=== PATIENT | female | born 1940 | race Caucasian/White ===

== ENCOUNTER 2016-11-18 08:28 | Emergency (ER) | payer MEDICARE ==
[2016-11-18 08:35] VITALS: BP 157/97
[2016-11-18] MEDS ORDERED: Albuterol/Ipratropium NEB.SOL* Albuterol 2.5 MG/Ipratropium 0.5 MG 3 ML INH ONE (09:44)
--- NOTE | 2016-11-18 09:46 | RAD ---
INDICATION: Cough and shortness of breath. COMPARISON: Comparison is made with a prior chest x-ray study from September 26, 2011. TECHNIQUE: Dual-energy PA and lateral views of the chest were obtained. FINDINGS: The heart is within normal limits in size. Mediastinal and hilar contours appear within normal limits. The lungs are hyperinflated and clear. No pleural effusion is seen. IMPRESSION: FINDINGS CONSISTENT WITH COPD, NO EVIDENCE FOR ACUTE FINDING.
--- NOTE | 2016-11-18 10:18 | UC ---
Respiratory Complaint HPI - HPI Summary HPI Summary: YESTERDAY ONSET OF SORE THROAT, SHORTNESS OF BREATH, COUGH, BODYACHES. FEVER YESTERDAY, RESOLVED TODAY. HX OF COPD. - History of Current Complaint Chief Complaint: UCRespiratory Stated Complaint: SOB COUGH FEVER Time Seen by Provider: 11/18/16 08:43 Hx Obtained From: Patient Onset/Duration: Sudden Onset, Lasting Days, Still Present Severity Initially: Moderate Severity Currently: Mild Character: Cough: Nonproductive Aggravating Factors: Deep Breaths Alleviating Factors: Bronchodilator Associated Signs And Symptoms: Positive: Fever - RESOLVED YESTERDAY, Wheezing, URI, Nasal Congestion, Hoarseness. Negative: Dizziness, Calf Pain, Calf Swelling - Risk Factors Pulmonary Embolism Risk Factors: Negative Cardiac Risk Factors: Negative Pseudomonas Risk Factors: Negative Tuberculosis Risk Factors: Negative - Allergies/Home Medications Allergies/Adverse Reactions: Allergies Allergy/AdvReac Type Severity Reaction Status Date / Time BEES Allergy ANAPHYLACTI Uncoded 11/18/16 08:35 C PMH/Surg Hx/FS Hx/Imm Hx Previously Healthy: Yes - Surgical History Surgical History: Yes Surgery Procedure, Year, and Place[place] [address] [place] [facility] [place] - Family History Known Family History: Positive: Respiratory Disease - ASTHMA - Social History Occupation: Retired Lives: With Family Alcohol Use: Daily Alcohol Amount: 1 glass wine at night Substance Use Type: None Smoking Status (MU): Former Smoker Type: Cigarettes Review of Systems Constitutional: Fever - RESOLVED, Chills Skin: Negative Eyes: Negative ENT: Sore Throat - RESOLVED, Nasal Discharge, Sinus Congestion Respiratory: Shortness Of Breath, Cough Cardiovascular: Negative Gastrointestinal: Negative Genitourinary: Negative Motor: Negative Neurovascular: Negative Musculoskeletal: Negative Neurological: Negative Psychological: Negative All Other Systems Reviewed And Are Negative: Yes Physical Exam Triage Information Reviewed: Yes Appearance: No Pain Distress, Well-Nourished, Ill-Appearing - MILDLY Vital Signs: Initial Vital Signs Temp 98.3 F 11/18/16 08:31 Pulse 107 11/18/16 08:31 Resp 22 11/18/16 08:31 BP 157/97 11/18/16 08:31 Pulse Ox 98 11/18/16 08:31 Vital Signs Reviewed: Yes Eye Exam: Normal ENT Exam: Normal ENT: Positive: Normal ENT inspection, Hearing grossly normal, Pharynx normal, TMs normal Dental Exam: Normal Neck exam: Normal Neck: Positive: Supple, Nontender, No Lymphadenopathy Respiratory Exam: Other - COUGH Respiratory: Positive: Chest non-tender, No respiratory distress, No accessory muscle use, Wheezing, Other: - [place] Cardiovascular Exam: Normal Cardiovascular: Positive: No Murmur, Pulses Normal, Brisk Capillary Refill, Tachycardia Abdominal Exam: Normal Musculoskeletal Exam: Normal Musculoskeletal: Positive: Strength Intact, ROM Intact, No Edema Neurological Exam: Normal Psychological Exam: Normal Skin Exam: Normal UC Diagnostic Evaluation - Laboratory O2 Sat by Pulse Oximetry: 98 Respiratory Course/Dx - Differential Dx/Diagnosis Differential Diagnosis/HQI/PQRI: Asthma, Bronchitis, Sinusitis Provider Diagnoses: BRONCHITIS WITH BRONCHOSPASM; COPD Discharge - Discharge Plan Condition: Stable Disposition: HOME Prescriptions: Albuterol HFA INHALER* [Ventolin HFA Inhaler*] 1 - 2 puff INH Q6H PRN #1 mdi PRN Reason: Wheezing Azithromycin TAB* [Zithromax TAB (Z-CHESTER) 250 mg #6 tabs] 250 mg PO DAILY #6 tab Patient Education Materials: Acute Bronchitis (ED), COPD (Chronic Obstructive Pulmonary Disease) (ED), Bronchospasm (ED) Referrals: Andreea Forbes MD [Primary Care Provider] - Additional Instructions: PLEASE SEEK CARE PROMPTLY AT THE EMERGENCY DEPARTMENT IF SYMPTOMS CONTINUE, WORSEN, OR IF NEW SYMPTOMS OCCUR.
== END 2016-11-18 10:25 | disposition home or self-care (01) ==
LOC: UCEAST 08:28
DX: J20.9 Acute bronchitis, unspecified (principal); J44.0 Chronic obstructive pulmonary disease with (acute) lower respiratory infection; Z91.030 Bee allergy status; Z87.891 Personal history of nicotine dependence
CPT/HCPCS: 71020; 87502; 99212; A9270-GY; G0463

== ENCOUNTER 2018-09-15 15:11 | Emergency (ER) | payer MEDICARE ==
[2018-09-15 15:26] VITALS: BP 159/84
--- NOTE | 2018-09-15 16:13 | UC ---
Respiratory Complaint HPI - HPI Summary HPI Summary: Reports 1 wk of bronchitis and feels like coughing got better but now has wheezing. has occasional sob and has been using symbicort as rx'd. when asked if she uses albuterol she said she just started yesterday. only used once. Of note pt used to smoke for 50 yrs. - History of Current Complaint Chief Complaint: UCRespiratory Stated Complaint: BREATHING ISSUES Time Seen by Provider: 09/15/18 15:48 Hx Obtained From: Patient Pain Intensity: 0 Aggravating Factors: Nothing Alleviating Factors: Nothing - Allergies/Home Medications Allergies/Adverse Reactions: Allergies Allergy/AdvReac Type Severity Reaction Status Date / Time BEES Allergy ANAPHYLACTI Uncoded 11/18/16 08:35 C PMH/Surg Hx/FS Hx/Imm Hx Cardiovascular History: Hypertension Respiratory History: COPD, Asthma - Surgical History Surgical History: Yes Surgery Procedure, Year, and Place[place] [facility] [place] - Family History Known Family History: Positive: Respiratory Disease - ASTHMA - Social History Alcohol Use: Daily Alcohol Amount: 1 glass wine at night Substance Use Type: None Smoking Status (MU): Former Smoker Type: Cigarettes Review of Systems All Other Systems Reviewed And Are Negative: Yes Constitutional: Negative: Fever, Chills, Fatigue Respiratory: Positive: Shortness Of Breath, Cough, Other - wheezing Cardiovascular: Positive: Negative Neurological: Negative: Headache, Weakness, Other - denies dizziness Physical Exam Triage Information Reviewed: Yes Appearance: Well-Appearing Vital Signs: Initial Vital Signs Temp 98.7 F 09/15/18 15:22 Pulse 108 09/15/18 15:22 Resp 18 09/15/18 15:22 BP 159/84 09/15/18 15:22 Pulse Ox 95 09/15/18 15:22 Vital Signs Reviewed: Yes Respiratory: Positive: No respiratory distress, No accessory muscle use, Wheezing - expiratory. Negative: Crackles, Rhonchi Cardiovascular Exam: Normal Neurological: Positive: Alert Skin: Negative: Rashes Respiratory Course/Dx - Course Course Of Treatment: Coughing, wheezing, occasional sob in a pt. who used to smoke for 50 yrs. Not thought to have pneumonia and is being undertreated since she is not using albuterol as needed. for now will have her use inhaler as often as she has symptoms every 4 hrs. Steroid burst to help w/ inflammatory process. No resp. distress. asked her to go to ED if sob worsens. We discussed her vitals and bp to review w/ pcp. Pulse ox WNL. - Differential Dx/Diagnosis Differential Diagnosis/HQI/PQRI: Asthma, Bronchitis, Lower Resp Infection Provider Diagnosis: Wheezing Discharge - Sign-Out/Discharge Documenting (check all that apply): Patient Departure All imaging exams completed and their final reports reviewed: No Studies - Discharge Plan Condition: Good Disposition: HOME Prescriptions: predniSONE [Prednisone 20 MG TAB] 20 mg PO DAILY 3 Days #3 tablet Patient Education Materials: Wheezing (ED) Referrals: Andreea Forbes MD [Primary Care Provider] - Additional Instructions: Please use your rescue inhaler for every respiratory symptom you have. I think you were being under treated because you forgot to use your inhaler. In the mean time I have sent your steroid pills to pharmacy - Billing Disposition and Condition Condition: GOOD Disposition: Home - Attestation Statements Provider Attestation: I was available for consult. This patient was seen by the [facility]. The patient was not presented to , seen by or examined by -Vern Hardwick MD
== END 2018-09-15 16:15 | disposition home or self-care (01) ==
LOC: UCEAST 15:11
DX: R06.2 Wheezing (principal); I10 Essential (primary) hypertension; J44.9 Chronic obstructive pulmonary disease, unspecified; Z87.891 Personal history of nicotine dependence
CPT/HCPCS: 99212; G0463

== ENCOUNTER 2024-02-15 16:39 | Inpatient (IN) ==
[2024-02-15 17:19] LABS: ABS Eosinophils 0.1 10^3/uL (0.0-0.5); ABS Lymphocytes 1.6 10^3/uL (1.0-4.8); ABS Monocytes 0.7 10^3/uL (0.0-0.9); ABS Neutrophils 4.9 10^3/uL (1.5-7.6); ABS Nucleated RBC 0.01 10^3/ul; Eosinophil % 1.9 %; Hematocrit 44.4 % (35-45); Hemoglobin 15.2 g/dL (11.5-14.3); Lymphocyte % 21.7 %; Mean Corpuscular Hemoglobin 33.1 pg (27-33); Mean Corpuscular Hgb Conc 34.3 g/dL (31-36); Mean Corpuscular Volume 96.5 fL (80-97); Nucleated Red Blood Cells % 0.1 %/100WBC (0.0-0.8); Platelet Count 403 10^3/uL (150-450); Red Cell Distribution Width 13.4 % (12-17); White Blood Count 7.3 10^3/uL (3.8-11.8)
[2024-02-15 17:57] LABS: Albumin 4.2 g/dL (3.2-5.2); Albumin/Globulin Ratio 1.8 (1-3); Calcium 9.9 mg/dL (8.6-10.3); Creatinine, Serum 0.57 mg/dL (0.51-0.95); Globulin 2.3 g/dL (2-4); Potassium 3.6 mmol/L (3.5-5.0); Total Bilirubin 0.4 mg/dL (0.2-1.0); Total Protein 6.5 g/dL (6.4-8.9); eGFR CKD-EPI 91.2 (>60)
[2024-02-15] MEDS: Iohexol 350 (CONTRAST) 500 ML MDV IV ONE (18:16)
[2024-02-15 20:04] LABS: HDL Cholesterol 71.4 mg/dL
[2024-02-15] MEDS ORDERED: Sulfur Hexaflouride MICROSPHR 25 MG VIAL IV PRN (22:20)
[2024-02-15] MEDS ORDERED: Albuterol HFA INHALER 8 gm MDI INH PRN (22:30)
[2024-02-15] MEDS: Mometasone/Formoter 200/5 MDI INH SCH (23:40)
[2024-02-16] MEDS: Enoxaparin 40 MG/0.4 ML SYR SUBCUT SCH (00:03)
[2024-02-16 07:15] LABS: ABS Eosinophils 0.2 10^3/uL (0.0-0.5); ABS Lymphocytes 1.9 10^3/uL (1.0-4.8); ABS Monocytes 0.8 10^3/uL (0.0-0.9); ABS Neutrophils 3.7 10^3/uL (1.5-7.6); Hematocrit 41.2 % (35-45); Hemoglobin 14.2 g/dL (11.5-14.3); Lymphocyte % 28.3 %; Mean Corpuscular Hemoglobin 33.4 pg (27-33); Mean Corpuscular Hgb Conc 34.5 g/dL (31-36); Mean Platelet Volume 7.6 fL (7.5-11.2); Nucleated Red Blood Cells % 0.1 %/100WBC (0.0-0.8); Platelet Count 365 10^3/uL (150-450); Red Blood Count 4.25 10^6/uL (3.63-4.92); Red Cell Distribution Width 13.7 % (12-17); White Blood Count 6.6 10^3/uL (3.8-11.8)
[2024-02-16 07:29] LABS: Calcium 9.2 mg/dL (8.6-10.3); Creatinine, Serum 0.65 mg/dL (0.51-0.95); HDL Cholesterol 65.5 mg/dL; Magnesium 1.9 mg/dL (1.9-2.7); Potassium 3.5 mmol/L (3.5-5.0); eGFR CKD-EPI 88.4 (>60)
[2024-02-16] MEDS: Gadoteridol (CONTRAST) 279.3 MG/ML 10 ML IV ONE (15:08)
[2024-02-16] MEDS: levETIRAcetam 500 MG IVPREMIX 500 MG/100 ML BAG IV SCH (17:45)
[2024-02-16] MEDS: Sulfamethox/Trimethoprim DS TAB 800/160 mg PO ONE (19:30)
[2024-02-17] MEDS: Sulfamethox/Trimethoprim DS TAB 800/160 mg PO SCH (04:18)
[2024-02-17] MEDS: Iohexol 350 (CONTRAST) 500 ML MDV IV ONE (20:50)
[2024-02-18 06:25] LABS: ABS Lymphocytes 0.8 10^3/uL (1.0-4.8); ABS Monocytes 0.1 10^3/uL (0.0-0.9); ABS Neutrophils 4.5 10^3/uL (1.5-7.6); Hematocrit 40.7 % (35-45); Hemoglobin 14.2 g/dL (11.5-14.3); Lymphocyte % 14.7 %; Mean Corpuscular Hemoglobin 33.5 pg (27-33); Mean Corpuscular Hgb Conc 34.8 g/dL (31-36); Mean Corpuscular Volume 96.3 fL (80-97); Mean Platelet Volume 7.6 fL (7.5-11.2); Nucleated Red Blood Cells % 0.1 %/100WBC (0.0-0.8); Platelet Count 366 10^3/uL (150-450); Red Blood Count 4.23 10^6/uL (3.63-4.92); Red Cell Distribution Width 13.4 % (12-17); White Blood Count 5.4 10^3/uL (3.8-11.8)
[2024-02-18 06:26] LABS: Calcium 9.9 mg/dL (8.6-10.3); Creatinine, Serum 0.63 mg/dL (0.51-0.95); Potassium 3.8 mmol/L (3.5-5.0); eGFR CKD-EPI 89.1 (>60)
[2024-02-18] MEDS: Iohexol 300 (CONTRAST) 10 ML SDV IV ONE (13:20)
[2024-02-18] MEDS ORDERED: Lorazepam PYXIS KEY PRN ×2 (13:56→17:10)
[2024-02-18] MEDS: LORazepam 2 mg VIAL 1 ml IV PUSH ONE (14:46)
[2024-02-19 06:02] LABS: ABS Neutrophils 13.2 10^3/uL (1.5-7.6); ABS Nucleated RBC 0.01 10^3/ul; Hematocrit 43.1 % (35-45); Hemoglobin 14.4 g/dL (11.5-14.3); Lymphocyte % 6.7 %; Mean Corpuscular Hemoglobin 32.2 pg (27-33); Mean Corpuscular Hgb Conc 33.4 g/dL (31-36); Mean Corpuscular Volume 96.5 fL (80-97); Mean Platelet Volume 7.8 fL (7.5-11.2); Nucleated Red Blood Cells % 0.1 %/100WBC (0.0-0.8); Platelet Count 412 10^3/uL (150-450); Red Blood Count 4.47 10^6/uL (3.63-4.92); Red Cell Distribution Width 13.7 % (12-17); White Blood Count 15.3 10^3/uL (3.8-11.8)
[2024-02-19 06:37] LABS: Calcium 9.7 mg/dL (8.6-10.3); Creatinine, Serum 0.54 mg/dL (0.51-0.95); Magnesium 1.8 mg/dL (1.9-2.7); Potassium 3.4 mmol/L (3.5-5.0); eGFR CKD-EPI 92.4 (>60)
[2024-02-19] MEDS: Magnesium Sulfate 2 gm BAG 2 GM/50 ML BAG IVPB ONE (09:02)
[2024-02-19] MEDS: Potassium EFFERVES 25 meq TAB PO ONE (09:06)
[2024-02-19 09:38] LABS: INR 0.92 (0.85-1.14)
[2024-02-20 05:59] LABS: ABS Lymphocytes 1.3 10^3/uL (1.0-4.8); ABS Monocytes 0.5 10^3/uL (0.0-0.9); ABS Neutrophils 7.4 10^3/uL (1.5-7.6); Lymphocyte % 14.4 %; Mean Corpuscular Hemoglobin 32.7 pg (27-33); Mean Corpuscular Hgb Conc 34.2 g/dL (31-36); Mean Corpuscular Volume 95.8 fL (80-97); Mean Platelet Volume 7.5 fL (7.5-11.2); Platelet Count 387 10^3/uL (150-450); Red Blood Count 4.28 10^6/uL (3.63-4.92); Red Cell Distribution Width 13.3 % (12-17); White Blood Count 9.2 10^3/uL (3.8-11.8)
[2024-02-20 07:24] LABS: Calcium 9.6 mg/dL (8.6-10.3); Creatinine, Serum 0.67 mg/dL (0.51-0.95); Magnesium 2.2 mg/dL (1.9-2.7); Potassium 4.3 mmol/L (3.5-5.0); eGFR CKD-EPI 87.8 (>60)
[2024-02-20] MEDS ORDERED: fentaNYL 100 mcg/2 ml 50 MCG/ML VIAL IV PRN (15:50)
[2024-02-20] MEDS ORDERED: Naloxone 0.4 mg VIAL 0.4 mg/ml 1 ml VIAL IV PRN (15:50)
[2024-02-20] MEDS ORDERED: HYDROmorphone 1 MG/1 ML SYRINGE IV PRN (15:50)
[2024-02-20] MEDS ORDERED: Ondansetron 4 mg VIAL 2 MG/ML 2 ml VIAL IV PRN (15:50)
[2024-02-20] MEDS: Dextran 70/Hypromellose Tears Eye Drops 15 ml BTL (for Artificials Tears) BOTH EYES PRN (22:15)
[2024-02-21 06:17] LABS: ABS Monocytes 0.3 10^3/uL (0.0-0.9); ABS Neutrophils 5.3 10^3/uL (1.5-7.6); Hematocrit 41.2 % (35-45); Hemoglobin 14.2 g/dL (11.5-14.3); Lymphocyte % 14.7 %; Mean Corpuscular Hemoglobin 33.2 pg (27-33); Mean Corpuscular Hgb Conc 34.4 g/dL (31-36); Mean Corpuscular Volume 96.4 fL (80-97); Platelet Count 394 10^3/uL (150-450); Red Blood Count 4.27 10^6/uL (3.63-4.92); Red Cell Distribution Width 13.4 % (12-17); White Blood Count 6.6 10^3/uL (3.8-11.8)
[2024-02-21 06:33] LABS: Calcium 9.5 mg/dL (8.6-10.3); Creatinine, Serum 0.53 mg/dL (0.51-0.95); Potassium 4.3 mmol/L (3.5-5.0); eGFR CKD-EPI 92.9 (>60)
[2024-02-21] MEDS ORDERED: Lidocaine 2% PF 5 ML VIAL ONE (11:02)
[2024-02-21] MEDS ORDERED: Ondansetron 4 mg VIAL 2 MG/ML 2 ml VIAL ONE (11:02)
[2024-02-21] MEDS ORDERED: Dexamethasone IV 4 MG/ML VIAL 1 ml VIAL ONE ×2 (11:02→14:09)
[2024-02-21] MEDS ORDERED: Propofol 10 MG/ML 20 ML BTL ONE ×2 (11:02→12:22)
[2024-02-21] MEDS ORDERED: Rocuronium 50 mg VIAL 10 mg/ml 5 ml VIAL (50 mg) ONE (11:02)
[2024-02-21] MEDS: Lactated Ringers 1000 ml BAG 1,000 ML IV SCH ×2 (11:45→16:53)
[2024-02-21] MEDS ORDERED: fentaNYL 100 mcg/2 ml 50 MCG/ML VIAL ONE (12:22)
[2024-02-21] MEDS ORDERED: Lidocaine 2% JELLY 6 ML Topical TOPICAL ONE (12:25)
[2024-02-21] MEDS ORDERED: Remifentanil 2 MG VIAL ONE (12:33)
[2024-02-21] MEDS ORDERED: Lidocaine 1% w EPI 1:100,000 MDV 20 ML VIAL ONE (12:40)
[2024-02-21] MEDS ORDERED: Thrombin 5,000 UNITS(BOVINE) for Ultrasound Guided Pseudoaneursym ONE ×2 (12:41→13:14)
[2024-02-21] MEDS ORDERED: Mannitol 25% (12.5 GM) 50 ML 12.5 GM/50 ML VIAL ONE ×2 (12:41→13:03)
[2024-02-21] MEDS ORDERED: ceFAZolin VIAL VIAL ONE (12:41)
[2024-02-21] MEDS ORDERED: Dextran 70/Hypromellose Tears Eye Drops 15 ml BTL (for Artificials Tears) BOTH EYES PRN (14:50)
[2024-02-21] MEDS ORDERED: Ondansetron 4 mg VIAL 2 MG/ML 2 ml VIAL IV PRN (14:50)
[2024-02-21] MEDS ORDERED: Benzocaine/Menthol LOZ MT PRN (14:50)
[2024-02-21] MEDS ORDERED: Phenol 1.4% Throat Spray BTL MT PRN (14:50)
[2024-02-21] MEDS: Buffered Lidocaine 1% SYRIN 1 ml INTRADERM ONE (16:18)
[2024-02-21] MEDS: Acetaminophen IV 1 GM/100ML 1,000 MG/100 ML BAG IV ONE (16:18)
[2024-02-21] MEDS: Scopolamine 1 mg/72hr PATCH TRANSDERM ONE (16:19)
[2024-02-21] MEDS: Morphine 2 MG/ML SYRINGE IV PRN (19:59)
[2024-02-21] MEDS: Labetalol IV 5 MG/ML 20 ml VIAL IV PUSH PRN (20:24)
[2024-02-21] MEDS: LORazepam 2 mg VIAL 1 ml IV PUSH PRN (21:03)
[2024-02-22 07:52] LABS: ABS Lymphocytes 1.4 10^3/uL (1.0-4.8); ABS Monocytes 1.1 10^3/uL (0.0-0.9); ABS Neutrophils 6.8 10^3/uL (1.5-7.6); Hematocrit 40.3 % (35-45); Hemoglobin 13.9 g/dL (11.5-14.3); Lymphocyte % 15.2 %; Mean Corpuscular Hemoglobin 33.3 pg (27-33); Mean Corpuscular Hgb Conc 34.6 g/dL (31-36); Mean Corpuscular Volume 96.4 fL (80-97); Mean Platelet Volume 7.2 fL (7.5-11.2); Platelet Count 407 10^3/uL (150-450); Red Blood Count 4.18 10^6/uL (3.63-4.92); Red Cell Distribution Width 13.2 % (12-17); White Blood Count 9.4 10^3/uL (3.8-11.8)
[2024-02-22 08:32] LABS: Calcium 8.4 mg/dL (8.6-10.3); Creatinine, Serum 0.43 mg/dL (0.51-0.95); Magnesium 1.9 mg/dL (1.9-2.7); Potassium 4.1 mmol/L (3.5-5.0); eGFR CKD-EPI 97.7 (>60)
[2024-02-22] MEDS: Magnesium Sulfate IV 1GM/100ML 1 GM/100 ML BAG IV ONE (10:29)
[2024-02-23] MEDS ORDERED: Magnesium Hydroxide LIQ 30 ML UDC PO PRN (10:47)
[2024-02-23] MEDS: Polyethylene Glycol 3350 17 GM PACKET PO SCH (12:04)
[2024-02-23] MEDS: Enoxaparin 40 MG/0.4 ML SYR SUBCUT SCH (15:10)
[2024-02-23] MEDS: Senna TAB 8.6 mg TAB PO SCH (20:00)
[2024-02-23] MEDS: Magnesium Hydroxide LIQ 30 ML UDC PO SCH (20:00)
[2024-02-24 06:33] LABS: ABS Lymphocytes 1.5 10^3/uL (1.0-4.8); ABS Monocytes 0.8 10^3/uL (0.0-0.9); ABS Neutrophils 7.1 10^3/uL (1.5-7.6); Hematocrit 41.1 % (35-45); Hemoglobin 14.3 g/dL (11.5-14.3); Mean Corpuscular Hemoglobin 32.8 pg (27-33); Mean Corpuscular Hgb Conc 34.7 g/dL (31-36); Mean Corpuscular Volume 94.4 fL (80-97); Mean Platelet Volume 7.3 fL (7.5-11.2); Platelet Count 455 10^3/uL (150-450); Red Blood Count 4.35 10^6/uL (3.63-4.92); Red Cell Distribution Width 12.8 % (12-17); White Blood Count 9.5 10^3/uL (3.8-11.8)
[2024-02-24 06:52] LABS: Calcium 9.5 mg/dL (8.6-10.3); Creatinine, Serum 0.52 mg/dL (0.51-0.95); Magnesium 1.9 mg/dL (1.9-2.7); eGFR CKD-EPI 93.3 (>60)
[2024-02-24] MEDS: Magnesium Sulfate IV 1GM/100ML 1 GM/100 ML BAG IV ONE (08:09)
[2024-02-24] MEDS: NS 0.9% 1000 ml BAG 1,000 ML IV SCH (12:33)
[2024-02-25 05:52] LABS: Hematocrit 39.9 % (35-45); Hemoglobin 13.7 g/dL (11.5-14.3); Mean Corpuscular Hemoglobin 32.9 pg (27-33); Mean Corpuscular Hgb Conc 34.2 g/dL (31-36); Mean Corpuscular Volume 96.2 fL (80-97); Mean Platelet Volume 7.3 fL (7.5-11.2); Platelet Count 434 10^3/uL (150-450); Red Blood Count 4.15 10^6/uL (3.63-4.92); Red Cell Distribution Width 13.3 % (12-17)
[2024-02-25 06:19] LABS: Calcium 8.9 mg/dL (8.6-10.3); Creatinine, Serum 0.46 mg/dL (0.51-0.95); Potassium 4.4 mmol/L (3.5-5.0); eGFR CKD-EPI 96.1 (>60)
[2024-02-26 06:11] LABS: ABS Lymphocytes 1.5 10^3/uL (1.0-4.8); ABS Monocytes 0.5 10^3/uL (0.0-0.9); ABS Neutrophils 6.7 10^3/uL (1.5-7.6); Hematocrit 40.2 % (35-45); Hemoglobin 14.1 g/dL (11.5-14.3); Lymphocyte % 17.4 %; Mean Corpuscular Hemoglobin 33.5 pg (27-33); Mean Corpuscular Hgb Conc 35.2 g/dL (31-36); Mean Corpuscular Volume 95.1 fL (80-97); Mean Platelet Volume 7.2 fL (7.5-11.2); Platelet Count 443 10^3/uL (150-450); Red Blood Count 4.22 10^6/uL (3.63-4.92); Red Cell Distribution Width 13.4 % (12-17); White Blood Count 8.7 10^3/uL (3.8-11.8)
[2024-02-26 06:21] LABS: Calcium 9.3 mg/dL (8.6-10.3); Creatinine, Serum 0.49 mg/dL (0.51-0.95); Magnesium 1.9 mg/dL (1.9-2.7); eGFR CKD-EPI 94.6 (>60)
[2024-02-26 09:51] VITALS: BP 117/64
== END 2024-02-26 11:29 | disposition home or self-care (01) | DRG 25 ==
LOC: ED 16:39 → EDHOLD 20:41 → SUATTDRO 20:41 → MEDTELE 22:22 → ICU 02-21 14:08 → SSU 02-22 12:02
PROVIDERS: ADMIT Student in an Organized Health Care Education/Training Program; ATTEND Internal Medicine